=== PATIENT | female | born 1995 | race Hispanic/Latino ===

== ENCOUNTER 2021-12-21 15:45 | Outpatient (CLI) | payer MEDICAID, SELFPAY ==
[2021-12-21 20:04] LABS: Alanine Aminotransferase 23 U/L (6-35); Albumin Level 4.5 g/dL (3.5-5.1); Alkaline Phosphatase 73 U/L (38-126); Amylase 56 U/L (30-110); Anion Gap 8 mmol/L (8-16); Aspartate Amino Transferase 33 U/L (14-36); Bilirubin,Total 0.7 mg/dL (0.2-1.3); Blood Urea Nitrogen 9 mg/dL (7-17); Calcium 8.7 mg/dL (8.4-10.2); Carbon Dioxide 27 mmol/L (22-30); Chloride 103 mmol/L (98-107); Cholesterol 144 mg/dL (0-200); Estimated Glomerular Filt Rate > 60; Glucose 87 mg/dL (65-110); HDL Direct 31 mg/dL; Lipase 39 U/L (23-300); Potassium 3.9 mmol/L (3.4-5.0); Sodium 138 mmol/L (137-145); Triglycerides 52 mg/dL (<150)
[2021-12-21 20:12] LABS: Basophils Percent Auto 0.2 % (0.2-1.2); Eosinophils Absolute Auto 0.3 K/mm3 (0-0.3); Eosinophils Percent Auto 2.9 % (0-4.4); Hematocrit 39.5 % (37.0-47.0); Hemoglobin 13.7 g/dL (12.0-15.0); Immature Granulocyte Absolute 0.02 K/mm3 (0.00-0.031); Immature Granulocyte Percent A 0.2 % (0-0.5); Lymphocytes Absolute Auto 2.88 K/mm3 (0.9-3.2); Lymphocytes Percent Auto 33.5 % (18.3-44.2); Mean Corpuscular HGB Conc 34.7 g/dl (32-36); Mean Corpuscular Hemoglobin 32.6 pg (26-34); Mean Platelet Volume 10.3 fl (7.4-10.4); Monocytes Absolute Auto 0.5 K/mm3 (0.1-0.6); Monocytes Percent Auto 6.3 % (2.6-8.5); Neutrophils Absolute Auto 4.9 K/mm3 (1.3-6.7); Neutrophils Percent Auto 56.9 % (45.5-73.1); Platelet Count Result 222 k/mm3 (150-375); Red Cell Distribution Width 12.1 % (11.5-14.5); White Blood Count 8.6 K/mm3 (4.5-10.0)
[2021-12-21 20:15] LABS: LDL Cholesterol Direct 80 mg/dL
[2021-12-21 20:52] LABS: Vitamin D 25 Hydroxy 34.4 ng/mL
== END 2021-12-21 15:46 | disposition home or self-care (01) ==
LOC: ANHGOSHLAB 15:46
PROVIDERS: PCP Nurse Practitioner; Visit Provider Nurse Practitioner
DX: Z13.6 Encounter for screening for cardiovascular disorders (principal); E55.9 Vitamin D deficiency, unspecified; Z13.220 Encounter for screening for lipoid disorders; R10.11 Right upper quadrant pain; R63.5 Abnormal weight gain
CPT/HCPCS: 36415; 80053; 80061; 82150; 82306; 83690; 84443; 85025

== ENCOUNTER → 2022-01-04 08:01 | Outpatient (CLI) | payer MEDICAID, SELFPAY ==
--- NOTE | ~2022-01-04 | US_ITS ---
US abdomen complete DATE: 01/04/2022 09:51 INDICATION: Right upper quadrant abdominal pain TECHNIQUE: Real-time imaging, Doppler analysis of abdomen COMPARISON: None FINDINGS: No hepatic or pancreatic space-occupying mass lesion. Normal hepatopedal portal venous flow direction. No gallstones or gallbladder wall thickening or pericholecystic fluid collection. Negativ e sonographic Zimmer's sign. The common bile duct measures 5.2 mm, normal. No renal mass lesion or hydronephrosis. Normal caliber of the abdominal aorta. Inferior vena cava is unremarkable. Splenic size is within normal range. IMPRESSION: Negative Reviewed, dictated and finalized at Location A. Reviewed, dictated and finalized at location B. IMPRESSION: Negative
== END ==
PROVIDERS: PCP Nurse Practitioner; Visit Provider Nurse Practitioner
DX: R10.11 Right upper quadrant pain (principal)
CPT/HCPCS: 76700

== ENCOUNTER 2022-10-09 17:37 | Outpatient (CLI) | payer OTHER, SELFPAY ==
[2022-10-09 19:20] LABS: Beta HCG Quantitative 4.96 mIU/ML
[2022-10-13 05:12] LABS: Progesterone 0.6 ng/mL (***)
== END 2022-10-09 17:38 | disposition home or self-care (01) ==
LOC: ANHLAB 17:38
PROVIDERS: PCP Nurse Practitioner; Visit Provider Student in an Organized Health Care Education/Training Program
DX: O02.1 Missed abortion (principal); Z3A.00 Weeks of gestation of pregnancy not specified
CPT/HCPCS: 36415; 84144; 84702; 86900; 86901

== ENCOUNTER 2022-12-22 09:07 | Outpatient (CLI) | payer OTHER, SELFPAY ==
[2022-12-22 18:19] LABS: Alanine Aminotransferase 19 U/L (6-35); Albumin Level 3.9 g/dL (3.5-5.1); Alkaline Phosphatase 78 U/L (38-126); Anion Gap 3 mmol/L (8-16); Aspartate Amino Transferase 29 U/L (14-36); Bilirubin,Total 0.4 mg/dL (0.2-1.3); Blood Urea Nitrogen 12 mg/dL (7-17); Calcium 8.4 mg/dL (8.4-10.2); Carbon Dioxide 27 mmol/L (22-30); Chloride 105 mmol/L (98-107); Cholesterol 151 mg/dL (0-200); Estimated Glomerular Filt Rate > 60; Glucose 89 mg/dL (65-110); HDL Direct 35 mg/dL; Sodium 135 mmol/L (137-145); Triglycerides 54 mg/dL (<150)
[2022-12-22 18:23] LABS: Basophils Percent Auto 0.3 % (0.2-1.2); Eosinophils Absolute Auto 0.2 K/mm3 (0-0.3); Eosinophils Percent Auto 2.8 % (0-4.4); Hemoglobin 13.2 g/dL (12.0-15.0); Immature Granulocyte Absolute 0.01 K/mm3 (0.00-0.031); Immature Granulocyte Percent A 0.2 % (0-0.5); Lymphocytes Absolute Auto 2.11 K/mm3 (0.9-3.2); Lymphocytes Percent Auto 32.7 % (18.3-44.2); Mean Corpuscular Hemoglobin 31.7 pg (26-34); Mean Corpuscular Volume 95.9 fl (80-100); Mean Platelet Volume 10.3 fl (7.4-10.4); Monocytes Absolute Auto 0.3 K/mm3 (0.1-0.6); Monocytes Percent Auto 5.3 % (2.6-8.5); Neutrophils Absolute Auto 3.8 K/mm3 (1.3-6.7); Neutrophils Percent Auto 58.7 % (45.5-73.1); Platelet Count Result 200 k/mm3 (150-375); Red Blood Count 4.17 M/mm3 (4.2-5.4); Red Cell Distribution Width 11.9 % (11.5-14.5); White Blood Count 6.5 K/mm3 (4.5-10.0)
[2022-12-22 18:42] LABS: Vitamin D 25 Hydroxy 15.9 ng/mL
[2022-12-22 19:41] LABS: LDL Cholesterol Direct 93 mg/dL
[2022-12-22 19:50] LABS: Hemoglobin A1C 4.9 % (<5.7)
== END 2022-12-22 09:08 | disposition home or self-care (01) ==
LOC: ANHGOSHLAB 09:09
PROVIDERS: PCP Nurse Practitioner; Visit Provider Nurse Practitioner Family
DX: Z00.00 Encounter for general adult medical examination without abnormal findings (principal); I10 Essential (primary) hypertension; Z13.1 Encounter for screening for diabetes mellitus; Z13.21 Encounter for screening for nutritional disorder; Z13.220 Encounter for screening for lipoid disorders; Z13.29 Encounter for screening for other suspected endocrine disorder
CPT/HCPCS: 36415; 80053; 80061; 82306; 83036; 84443; 85025

== ENCOUNTER → 2023-07-10 15:30 | Outpatient (CLI) | payer OTHER, SELFPAY ==
--- NOTE | ~2023-07-10 | XR_ITS ---
XR thoracic spine 3V DATE: 07/10/2023 15:51 INDICATION: Back pain. No injury. TECHNIQUE: AP, lateral, swimmer views COMPARISON: None FINDINGS: There is minimal dextroscoliosis. No fracture or dislocation or bone destruction. The thora cic pedicles are intact. No paraspinal soft tissue thickening. IMPRESSION: Minimal dextroscoliosis Reviewed, dictated and finalized at location L. NT CUTTER IMPRESSION: Minimal dextroscoliosis
--- NOTE | ~2023-07-10 | XR_ITS ---
XR lumbar spine 2-3V DATE: 07/10/2023 15:51 INDICATION: Back pain. No injury. TECHNIQUE: AP, lateral, coned lateral lumbosacral views COMPARISON: None FINDINGS: Minimal thoracolumbar dextroscoliosis. Included lower thoracic and lumbar pedicles are intact. No fracture or bone destruction or spondyloli sthesis. Lumbar and lumbosacral interspaces appear well preserved. The sacroiliac joints are intact. IMPRESSION: Minimal scoliosis Reviewed, dictated and finalized at location L. POULE EXAMINER IMPRESSION: Minimal scoliosis
== END ==
PROVIDERS: PCP Family Medicine; Visit Provider Family Medicine
DX: M54.6 Pain in thoracic spine (principal)
CPT/HCPCS: 72072; 72100

== ENCOUNTER 2023-07-31 16:29 | Emergency (ER) | payer OTHER, SELFPAY ==
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
[2023-07-31 16:40] VITALS: BP 110/84; PULSE 73; RESP 16; TEMP 36.9; O2SAT 100
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
== END 2023-07-31 17:30 | disposition home or self-care (01) ==
PROVIDERS: Emergency Provider Nurse Practitioner; PCP Family Medicine
DX: S00.33XA Contusion of nose, initial encounter (principal); W50.0XXA Accidental hit or strike by another person, initial encounter; J45.909 Unspecified asthma, uncomplicated
CPT/HCPCS: 70150; 99213; G0463

== ENCOUNTER 2023-10-26 08:33 | Outpatient (CLI) | payer OTHER, SELFPAY ==
[2023-10-26 14:17] LABS: Basophils Percent Auto 0.4 % (0.2-1.2); Eosinophils Absolute Auto 0.3 K/mm3 (0-0.3); Eosinophils Percent Auto 4.4 % (0-4.4); Hematocrit 40.6 % (37.0-47.0); Hemoglobin 13.3 g/dL (12.0-15.0); Immature Granulocyte Absolute 0.01 K/mm3 (0.00-0.031); Immature Granulocyte Percent A 0.1 % (0-0.5); Lymphocytes Absolute Auto 2.27 K/mm3 (0.9-3.2); Lymphocytes Percent Auto 33.2 % (18.3-44.2); Mean Corpuscular HGB Conc 32.8 g/dl (32-36); Mean Corpuscular Hemoglobin 32.2 pg (26-34); Mean Corpuscular Volume 98.3 fl (80-100); Mean Platelet Volume 10.7 fl (7.4-10.4); Monocytes Absolute Auto 0.5 K/mm3 (0.1-0.6); Monocytes Percent Auto 6.6 % (2.6-8.5); Neutrophils Absolute Auto 3.8 K/mm3 (1.3-6.7); Neutrophils Percent Auto 55.3 % (45.5-73.1); Platelet Count Result 184 k/mm3 (150-375); Red Blood Count 4.13 M/mm3 (4.2-5.4); White Blood Count 6.8 K/mm3 (4.5-10.0)
[2023-10-26 15:39] LABS: Alanine Aminotransferase 15 U/L (6-35); Alkaline Phosphatase 68 U/L (38-126); Anion Gap 6 mmol/L (4-12); Aspartate Amino Transferase 48 U/L (14-36); Bilirubin,Total 0.6 mg/dL (0.2-1.3); Blood Urea Nitrogen 9 mg/dL (7-17); Calcium 8.9 mg/dL (8.4-10.2); Carbon Dioxide 26 mmol/L (22-30); Chloride 106 mmol/L (98-107); Estimated Glomerular Filt Rate > 60; Glucose 80 mg/dL (65-110); Magnesium 1.8 mg/dL (1.6-2.3); NT Pro B Type Natriuretic Pept 23 pg/mL (19.9-100); Potassium 3.6 mmol/L (3.4-5.0); Sodium 138 mmol/L (137-145)
[2023-10-26 16:56] LABS: Vitamin D 25 Hydroxy 49.5 ng/mL
== END 2023-10-26 08:34 | disposition home or self-care (01) ==
LOC: ANHGOSHLAB 08:34
PROVIDERS: PCP Family Medicine; Visit Provider Nurse Practitioner Family
DX: Z00.00 Encounter for general adult medical examination without abnormal findings (principal); E53.8 Deficiency of other specified B group vitamins; Z13.21 Encounter for screening for nutritional disorder; Z13.29 Encounter for screening for other suspected endocrine disorder; R53.83 Other fatigue; R41.89 Other symptoms and signs involving cognitive functions and awareness; R00.2 Palpitations; R00.0 Tachycardia, unspecified; E55.9 Vitamin D deficiency, unspecified
CPT/HCPCS: 36415; 80053; 82306; 82607; 83735; 83880; 84443; 85025

== ENCOUNTER 2023-10-30 09:40 | Outpatient (CLI) | payer OTHER, SELFPAY ==
--- NOTE | ~2023-10-30 | CT_ITS ---
EXAMINATION: CT abdomen wo con DATE: 10/30/2023 09:52 INDICATION: Right upper quadrant abdominal pain. TECHNIQUE: Computed tomography (CT) of the abdomen was performed without intravenous contrast. Automa josette exposure control and iterative reconstruction technique were employed. The dose-length product wa s 730.33 mGy-cm. COMPARISON: None. FINDINGS: The visualized portions of the lung bases are clear without pneumonia or pleural effusion. The heart size is normal. No pericardial effusion. The liver, gallbladder, spleen, pancreas, adrenal glands, and kidneys are normal. There is no urolithiasis. There are no dilated loops of bowel. The ap pendix is normal. There are no pathologically enlarged lymph nodes. There is no free intraperitoneal fluid. There is mild thoracic and lumbar spondylosis. IMPRESSION: 1. No etiology for the patient's symptoms. Reviewed, dictated and finalized at location A.
== END 2023-10-30 09:41 ==
LOC: MICIMG 09:41
PROVIDERS: PCP Family Medicine; Visit Provider Nurse Practitioner Family
DX: R10.11 Right upper quadrant pain (principal); R11.10 Vomiting, unspecified; R19.7 Diarrhea, unspecified
CPT/HCPCS: 74150

== ENCOUNTER 2024-01-31 09:31 | Outpatient (CLI) | payer OTHER, SELFPAY ==
[2024-01-31 13:55] LABS: Basophils Percent Auto 0.3 % (0.2-1.2); Eosinophils Absolute Auto 0.1 K/mm3 (0-0.3); Eosinophils Percent Auto 2.1 % (0-4.4); Hematocrit 41.1 % (37.0-47.0); Hemoglobin 13.4 g/dL (12.0-15.0); Immature Granulocyte Absolute 0.02 K/mm3 (0.00-0.031); Immature Granulocyte Percent A 0.3 % (0-0.5); Lymphocytes Absolute Auto 2.23 K/mm3 (0.9-3.2); Lymphocytes Percent Auto 32.8 % (18.3-44.2); Mean Corpuscular HGB Conc 32.6 g/dl (32-36); Mean Corpuscular Hemoglobin 31.8 pg (26-34); Mean Corpuscular Volume 97.4 fl (80-100); Mean Platelet Volume 10.2 fl (7.4-10.4); Monocytes Absolute Auto 0.4 K/mm3 (0.1-0.6); Monocytes Percent Auto 5.7 % (2.6-8.5); Neutrophils Percent Auto 58.8 % (45.5-73.1); Platelet Count Result 212 k/mm3 (150-375); Red Blood Count 4.22 M/mm3 (4.2-5.4); Red Cell Distribution Width 12.1 % (11.5-14.5); White Blood Count 6.8 K/mm3 (4.5-10.0)
[2024-01-31 15:24] LABS: Beta HCG Quantitative < 2.39 mIU/ML
[2024-01-31 15:38] LABS: Hemoglobin A1C 4.9 % (<5.7)
[2024-02-02 02:48] LABS: DHEA-Sulfate 301 mcg/dL (14-349)
[2024-02-04 14:13] LABS: Thyroid Peroxidase Antibodies 1 IU/mL (<9)
[2024-02-04 15:47] LABS: Testosterone Total 35 ng/dL (2-45)
[2024-02-04 15:58] LABS: ANA Cascade Screen NEGATIVE (NEGATIVE)
[2024-02-07 17:07] LABS: Estrogen 142 pg/mL
== END 2024-01-31 09:32 | disposition home or self-care (01) ==
LOC: ANHGOSHLAB 09:32
PROVIDERS: PCP Family Medicine; Visit Provider Nurse Practitioner Family
DX: E28.2 Polycystic ovarian syndrome (principal); F32.A Depression, unspecified; R53.83 Other fatigue; R63.5 Abnormal weight gain; R73.03 Prediabetes; E53.8 Deficiency of other specified B group vitamins; E55.9 Vitamin D deficiency, unspecified; M25.50 Pain in unspecified joint; O02.1 Missed abortion; R00.2 Palpitations; R41.89 Other symptoms and signs involving cognitive functions and awareness; N92.6 Irregular menstruation, unspecified
CPT/HCPCS: 36415; 82607; 82627; 82672; 83036; 84403; 84443; 84702; 85025; 86038; 86225; 86235; 86364; 86376

== ENCOUNTER 2024-03-08 08:40 | Emergency (ER) | payer OTHER, SELFPAY ==
--- NOTE | ~2024-03-08 | XR_ITS ---
EXAMINATION: XR abdomen/kub 1V DATE: 03/08/2024 09:34 INDICATION: Nausea. Diarrhea. TECHNIQUE: A supine view of the abdomen on 2 radiographs was obtained. COMPARISON: CT abdomen 10/30/2023 FINDINGS: There are no dilated loops of bowel. There is a small volume of stool in the colon. IMPRESSION: 1. Normal bowel gas pattern. Reviewed, dictated and finalized at location A.
[2024-03-08 08:55] VITALS: BP 119/81; PULSE 93; RESP 16; TEMP 36.5; O2SAT 100
--- NOTE | 2024-03-08 09:21 | ED.NAVMDI ---
HPI - Nausea/Vomiting/Diarrhea General Chief complaint: Nausea/Vomiting/Diarrhea Stated complaint: Diarrhea / Nausea Time Seen by Provider: 03/08/24 09:10 Source: patient Mode of arrival: ambulatory Limitations: no limitations History of Present Illness HPI Narrative: Vanige is a 29-year-old female patient presenting to the clinic today with complaints of nausea, abdominal cramping, and diarrhea for the past 6 days. She reports the diarrhea is liquid and mucous. States that she did have a fever as well highest was 100.8? F. States that her burps and stools are very foul smelling. Denies any vomiting. Started taking Wegovy 5 weeks ago. Invited some for family/friends over for a [employer] on Sunday. States that 1 of the other people who ate at the [employer] is also having similar symptoms. Denies any memory of eating any bad foods. She denies sore throat or any URI symptoms. Took an at-home test on Sunday and was negative. Related Data Allergies Allergy/AdvReac Type Severity Reaction Status Date / Time No Known Allergies Allergy Verified 03/08/24 09:02 Review of Systems Review of Systems: Pertinent positives per HPI. Patient denies any rash, headache, visual changes, dizziness, cough, runny nose, sore throat, shortness of breath, chest pain, palpitations, vomiting, constipation, or any urinary issues. PMFSH Past Medical History Medical History Abdominal pain, vomiting, and diarrhea Abnormal weight gain Allergies Anxiety Asthma Bradycardia Brain fog Depression Fatigue Heart palpitations RUQ abdominal pain Tachycardia Vitamin D deficiency, unspecified Surgical History Surgical History H/O section (~2019) H/O total cystectomy (~2021) Family History Family History Other Cancer Other Diabetes mellitus Hypertension Grandparent Hypertension Social History Social History Smoking status: Never smoker Alcohol intake: current Substance use: never Substance use type: does not use Lack of Transportation: No Lack of Food: Never True Current Housing: I Have Housing Concerned About Future Housing: No Difficulty Paying Gas/Electric Bills: No Difficulty Paying for Meds: No Currently Unemployed: No Education: Master's Degree or Higher Difficulty w/ Childcare or Family Care: No Living arrangements: with family Occupation/Education: occupation 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 There is no relevant family history pertinent to the patient complaint. Exam Narrative: General: Well-developed, obese, in no apparent distress. Head: Normocephalic, atraumatic. Cardio: Regular rate and rhythm, s1 and s2 normal, no murmur appreciated. Resp: Clear to auscultation bilaterally, no rhonchi, rales, wheezing or rubs. Abdomen: Soft, pliable, bowel sounds present in all quadrants, mid and lower abdominal discomfort to palpation, no organomegly, no CVAT tenderness. Course Course Emergency Course: Portions of this record may have been created with voice recognition software. Level of Care: Express Care Visit Vital Signs Vital signs: Vital Signs Temperature 36.5 C 03/08/24 08:55 Pulse Rate 93 03/08/24 08:55 Respiratory Rate 16 03/08/24 08:55 Blood Pressure 119/81 03/08/24 08:55 Pulse Oximetry 100 03/08/24 08:55 Temperature 36.5 C 03/08/24 08:55 Pulse Rate 93 03/08/24 08:55 Respirat
== END 2024-03-08 10:05 | disposition home or self-care (01) ==
PROVIDERS: Emergency Provider Nurse Practitioner Family; PCP Family Medicine
DX: K52.9 Noninfective gastroenteritis and colitis, unspecified (principal)
CPT/HCPCS: 74018; 99213; G0463

== ENCOUNTER 2025-01-01 17:59 | Emergency (ER) | payer OTHER, BC, SELFPAY ==
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
--- OUTSIDE RECORDS SUMMARY | 2025-01-01 18:02 | XMS_ITS | Continuity of Care Document ---
Author Organization [facility] Address [address] [place] [address] Phone Care Team Providers Care Clip Riveter Name Role Phone Lupis PT, MINERVAT, James Unavailable Unavailable Procedures Procedure Date PT Evaluation Moderate Complexity Therapeutic Activities Advance Directives Directive Yes / No Effective Date File Name No Information Encounters Encounter Description Practice Location Reason(s) For Visit Diagnoses Date Provider Providers Copied on Encounter [facility], [address], [id number], tel:[phone] [place] No Information 4 Lupis Ramirez. . [facility], [address], [place], [place], [id number], tel:[phone] [place] No Information 4 Lupis Ramirez. . Referring Provider: Cesilia Duff [address] [place] [address] , [place], [address]. 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
--- OUTSIDE RECORDS SUMMARY | 2025-01-01 18:02 | XMS_ITS | Patient Health Record ---
Author Organization [facility] Address [address] [place] [address] Care Team Providers Care Manager Rail Name Role Phone Shahida Ricketts Unavailable Unavailable Reason For Referral No Information Plan Of Treatment No Information Insurance Providers Payer Name Payer Address Payer Phone Subscriber Number Group Number Insured Name Patient Relationship to Insured Coverage Start Date Coverage End Date [facility] [address] [place] [id number] SHAYY WALKER Self - patient is the insured [facility] [employer] [address] [address] [place] [address] [id number] SHAYY Renteria Self - patient is the insured
[2025-01-01 18:40] VITALS: BP 110/82; PULSE 82; RESP 18; TEMP 36.6; O2SAT 99
[2025-01-01 20:01] VITALS: BP 115/71; PULSE 70; RESP 16; TEMP 36.6; O2SAT 100
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
[2025-01-01 20:36] LABS: BEDSIDEPREGUCG Negative (Negative)
--- OUTSIDE RECORDS SUMMARY | 2025-01-01 20:36 | XMS_ITS | Continuity of Care Document ---
Author Organization [facility] Address [address] [place] [address] Phone Care Team Providers Care Hospice Patient Care Secretary Name Role Phone Lupis PT, MINERVAT, James Unavailable Unavailable Procedures Procedure Date PT Evaluation Moderate Complexity Therapeutic Activities Advance Directives Directive Yes / No Effective Date File Name No Information Encounters Encounter Description Practice Location Reason(s) For Visit Diagnoses Date Provider Providers Copied on Encounter [facility], [address], [id number], tel:[phone] [place] No Information 4 Lupis Ramirez. . [facility], [address], [place], [place], [id number], tel:[phone] [place] No Information 4 Lupis Ramirez. . Referring Provider: Cesilia Duff [address] [place] [address] , [place], [address]. tel:[phone] Family History Family Member Type Diagnosis Age At Onset No Information Payers Payer name Insurance type Covered constitution party ID Authoriza tipretty(s) [employer] CI [id number] Social History Type Description Quantity Date Captured [...]
[2025-01-01] MEDS: KETOROLAC (*BKC) 60 MG/2 ML VIAL IM (22:59)
[2025-01-01 23:21] VITALS: BP 129/96; PULSE 83; RESP 16; TEMP 36.8; O2SAT 97
== END 2025-01-01 23:23 | disposition home or self-care (01) ==
PROVIDERS: Emergency Provider Registered Nurse; PCP Family Medicine
DX: S06.0X0A Concussion without loss of consciousness, initial encounter (principal); S16.1XXA Strain of muscle, fascia and tendon at neck level, initial encounter; S39.012A Strain of muscle, fascia and tendon of lower back, initial encounter; E55.9 Vitamin D deficiency, unspecified; J45.909 Unspecified asthma, uncomplicated; F32.A Depression, unspecified; F41.9 Anxiety disorder, unspecified; V49.40XA Driver injured in collision with unspecified motor vehicles in traffic accident, initial encounter
CPT/HCPCS: 70450; 72125; 72131; 81025; 96372; 99284; J1885; L0140